=== PATIENT | female | born 1965 | race Caucasian/White ===

== ENCOUNTER → 2016-10-20 | Outpatient (CLI) | payer BC ==
[2016-04-30 12:54] VITALS: BP 127/82
[~2016-10-20] MED LIST: ASPI81TA2 PO; CLIN-44 PO; CRAN500C6 PO; CYCL10TA2 PO; ESTR0.62 PO; OXYB10TA PO; PANT40TA5 PO; SIMV20TA3 PO; amitriptyline PO; percocet PO
--- NOTE | 2016-10-20 16:41 | KCIC ---
PROCEDURE MRI of the cervical spine without contrast 10/20/2016 HISTORY Neck pain which radiates down the left arm. TECHNIQUE Unenhanced T1 weighted, T2 weighted and inversion recovery sagittal and gradient echo and T2 weighted axial images of the cervical spine were obtained. FINDINGS There is mild straightening of the normal cervical lordosis. Magnetic susceptibility artifact related to anterior interbody fusion devices is seen at C5-6 and C6-7. Degenerative signal changes are seen involving all of the discs of the cervical spine. Degenerative signal changes are seen within the marrow surrounding these discs. No area of abnormal signal intensity is seen involving the cervical spinal cord. At the C2-3, C3-4 and C4-5 disc spaces there are minimal to mild generalized disc bulges. Degenerative changes are seen involving the uncovertebral and facet joints bilaterally. These findings do not result in significant central spinal canal or neural foraminal stenosis. At the C5-6 and C6-7 levels degenerative changes are seen involving the uncovertebral and facet joints bilaterally. These findings do not result in significant central spinal canal or neural foraminal stenosis. At the C7-T1 disc space mild degenerative changes are seen involving the facet joints bilaterally. These findings do not result in significant central spinal canal or neural foraminal stenosis. At the T1-2 disc space there is a mild generalized disc bulge. Superimposed on this disc bulge is a right paracentral focal disc osteophyte complex. This measures 3-4 millimeters in AP diameter. It effaces the right anterior CSF without resulting in definite significant central spinal canal or neural foraminal stenosis. IMPRESSION 1. Post anterior fusion at C5-6 and C6-7. 2. Degenerative changes are seen involving cervical spine as outlined above. These findings do not result in significant central spinal canal or neural foraminal stenosis at any level. Electronically signed by: Barry Gonsalves MD (October 20, 2016 16:40:13)
== END | disposition home or self-care (01) ==
LOC: KCIC MRI 12:45
PROVIDERS: ATTEND Physician Assistant Surgical
DX: M47.22 Other spondylosis with radiculopathy, cervical region (principal)
CPT/HCPCS: 72141

== ENCOUNTER → 2016-11-28 | Outpatient (CLI) | payer BC ==
[2016-04-30 12:54] VITALS: BP 127/82
[~2016-11-28] MED LIST changes: +ASPI-630 PO; -ASPI81TA2 PO; -CLIN-44 PO; +CLIN150C14 PO
--- NOTE | 2016-11-28 14:35 | RAD ---
DATE: 11/28/2016 EXAM: DIGITAL DIAGNOSTIC BILATERAL HISTORY: Possible abnormality in one of the breasts on examination in 2013. The patient, on questioning, denies any breast complaints. COMPARISON: None at this time. If a prior mammogram becomes available at a later date and amended report will be generated. This study was interpreted with the benefit of Computerized Aided Detection (CAD). FINDINGS: Breast Density: SCATTERED The breast parenchyma shows scattered fibroglandular densities. Breast parenchyma level B. On the cc view of the right breast there is an area of slightly increased density laterally. Additional rolled views were obtained as well as a coned compression view. On the additional views no abnormality is seen in the finding on the screening examination is compatible with summation artifact. There is an area of slightly increased density on the right MLO view superiorly. A cone compression view and an ML view were obtained. No mass is seen on the MLO view in the finding also is compatible with summation artifact. In the left breast centrally on the cc view there is an area of increased density. Additional cone compression images and rolled CC and lateral views were obtained. On the additional views no abnormality is seen and again the findings are compatible with summation artifact. No suspect calcifications are seen IMPRESSION: Benign findings. Follow-up examination in one year advised BI-RADS CATEGORY: 2 BENIGN FINDING(S) RECOMMENDED FOLLOW-UP: 12M 12 MONTH FOLLOW-UP PQRS compliance statement: Patient information was entered into a reminder system with a target due date 11/28/2017 for the next mammogram. Mammography is a sensitive method for finding small breast cancers, but it does not detect them all and is not a substitute for careful clinical examination. A negative mammogram does not negate a clinically suspicious finding and should not result in delay in biopsying a clinically suspicious abnormality. "Our facility is accredited by the [employer] Mammography [employer]."
== END | disposition home or self-care (01) ==
LOC: MAMMO 15:50
PROVIDERS: ATTEND Physician Assistant Surgical
DX: R92.2 Inconclusive mammogram (principal)
CPT/HCPCS: G0204; 77066

== ENCOUNTER → 2018-09-09 | Outpatient (CLI) | payer BC ==
[2016-04-30 12:54] VITALS: BP 127/82
--- NOTE | 2018-09-10 09:44 | RAD ---
DATE: 09/09/2018 EXAM: DIGITAL SCREEN BILAT W/CAD HISTORY: Routine screening COMPARISON: 11/28/2016 This study was interpreted with the benefit of Computerized Aided Detection (CAD). Breast Density: SCATTERED The breast parenchyma shows scattered fibroglandular densities. Breast parenchyma level B. FINDINGS: No new or enlarging breast densities are seen. No suspicious microcalcifications are evident. IMPRESSION: Stable mammograms without evidence of malignancy. BI-RADS CATEGORY: 1 NEGATIVE RECOMMENDED FOLLOW-UP: 12M 12 MONTH FOLLOW-UP PQRS compliance statement: Patient information was entered into a reminder system with a target due date for the next mammogram. Mammography is a sensitive method for finding small breast cancers, but it does not detect them all and is not a substitute for careful clinical examination. A negative mammogram does not negate a clinically suspicious finding and should not result in delay in biopsying a clinically suspicious abnormality. "Our facility is accredited by the [employer]ammography [employer]."
== END | disposition home or self-care (01) ==
LOC: MAMMO 13:58
PROVIDERS: ATTEND Physician Assistant Surgical
DX: Z12.31 Encounter for screening mammogram for malignant neoplasm of breast (principal)
CPT/HCPCS: 77067